=== PATIENT | female | born 1980 | race Two or more races ===

== ENCOUNTER 2018-12-07 08:07 | Emergency (ER) | payer OTHER ==
[~2018-12-07] VITALS: Ht 160 cm; Wt 112.5 kg
[2018-12-07] MEDS ORDERED: PRENATABS FA T1 EACH (08:31)
[2018-12-07] MEDS ORDERED: LABETALOL HCL100 MG (08:32)
== END 2018-12-07 13:50 | disposition home or self-care (01) ==
LOC: ER 08:07
DX: O20.0 Threatened abortion (principal)

== ENCOUNTER → 2018-12-20 | Outpatient (CLI) | payer OTHER ==
[~2018-12-20] MED LIST: LABETALOL HCL100 MG; PRENATABS FA T1 EACH
== END | disposition home or self-care (01) ==
LOC: PRENATAL 08:00
DX: O09.521 Supervision of elderly multigravida, first trimester (principal); O10.011 Pre-existing essential hypertension complicating pregnancy, first trimester; O09.91 Supervision of high risk pregnancy, unspecified, first trimester; O09.811 Supervision of pregnancy resulting from assisted reproductive technology, first trimester; O34.11 Maternal care for benign tumor of corpus uteri, first trimester

== ENCOUNTER 2019-01-07 11:21 | Emergency (ER) | payer OTHER ==
[~2019-01-07] VITALS: Ht 160 cm; Wt 108.9 kg
== END 2019-01-07 14:05 | disposition home or self-care (01) ==
LOC: ER 11:21
DX: O26.892 Other specified pregnancy related conditions, second trimester (principal); R10.2 Pelvic and perineal pain; Z34.82 Encounter for supervision of other normal pregnancy, second trimester

== ENCOUNTER → 2019-02-13 | Outpatient (CLI) | payer OTHER | END | disposition home or self-care (01) | LOC: PRENATAL 01-31 08:00 | DX: O28.1 Abnormal biochemical finding on antenatal screening of mother (principal); O09.522 Supervision of elderly multigravida, second trimester; O10.012 Pre-existing essential hypertension complicating pregnancy, second trimester; O99.212 Obesity complicating pregnancy, second trimester ==

== ENCOUNTER → 2019-04-11 | Outpatient (CLI) | payer OTHER | END | disposition home or self-care (01) | LOC: PRENATAL 08:00 | DX: O10.012 Pre-existing essential hypertension complicating pregnancy, second trimester (principal); O09.212 Supervision of pregnancy with history of pre-term labor, second trimester; O34.12 Maternal care for benign tumor of corpus uteri, second trimester; O99.212 Obesity complicating pregnancy, second trimester ==

== ENCOUNTER → 2019-05-25 | Outpatient (CLI) | payer OTHER ==
[~2019-05-25] MED LIST changes: +CHILDREN'S ASPI81 MG PO; +IBUPROFEN800 MG PO; +IRON325 MG PO; +LABETALOL HCL100 MG PO; +PANADOL EXTRA500 MG PO; +SIMETHICONE125 M1 PO
== END | disposition home or self-care (01) ==
LOC: PRENATAL 08:02
DX: O26.843 Uterine size-date discrepancy, third trimester (principal); O10.013 Pre-existing essential hypertension complicating pregnancy, third trimester; O09.213 Supervision of pregnancy with history of pre-term labor, third trimester; O34.13 Maternal care for benign tumor of corpus uteri, third trimester; O99.213 Obesity complicating pregnancy, third trimester; O09.892 Supervision of other high risk pregnancies, second trimester; O16.3 Unspecified maternal hypertension, third trimester

== ENCOUNTER 2019-05-26 21:04 | Inpatient (IN) | payer OTHER ==
[~2019-05-26] VITALS: Ht 160 cm; Wt 110.7 kg
[~2019-05-26 21:04] MED LIST changes: -CHILDREN'S ASPI81 MG PO; -IBUPROFEN800 MG PO; -IRON325 MG PO; -LABETALOL HCL100 MG PO; -PANADOL EXTRA500 MG PO; -SIMETHICONE125 M1 PO
[2019-05-26] MEDS ORDERED: CHILDREN'S ASPI81 MG PO (21:54)
[2019-05-26] MEDS ORDERED: PANADOL EXTRA500 MG PO (21:55)
[2019-05-26] MEDS ORDERED: IRON325 MG PO (21:55)
[2019-05-30] MEDS ORDERED: IBUPROFEN800 MG PO (07:16)
[2019-05-30] MEDS ORDERED: LABETALOL HCL100 MG PO (07:16)
[2019-05-30] MEDS ORDERED: SIMETHICONE125 M1 PO (07:17)
== END 2019-05-30 08:58 | disposition home or self-care (01) | DRG 788 ==
LOC: LDR 21:04 → OB/GYN 21:04
PROVIDERS: ADMIT Obstetrics & Gynecology
PROC: 4A1HXCZ Monitoring of Products of Conception, Cardiac Rate, External Approach (ICD-10-PCS; 2019-05-26)
PROC: 10D00Z1 Extraction of Products of Conception, Low, Open Approach (ICD-10-PCS; principal; 2019-05-27 14:00)
PROC: 0UT90ZZ Resection of Uterus, Open Approach (ICD-10-PCS; 2019-05-27 14:00)
DX: O82 Encounter for cesarean delivery without indication (principal); O64.1XX0 Obstructed labor due to breech presentation, not applicable or unspecified; O65.5 Obstructed labor due to abnormality of maternal pelvic organs; O34.13 Maternal care for benign tumor of corpus uteri, third trimester; D25.1 Intramural leiomyoma of uterus; Z3A.34 34 weeks gestation of pregnancy; Z37.0 Single live birth